=== PATIENT | male | born 1955 | race Caucasian/White ===

== ENCOUNTER 2017-08-27 08:19 | Emergency (ER) | payer SELFPAY ==
[~2017-08-27] VITALS: Ht 188 cm; Wt 85.0 kg
[2017-08-27 08:21] VITALS: BP 174/94; PULSE 104; RESP 16; TEMP 99.2; O2SAT 98
[2017-08-27] MEDS ORDERED: LAMO150 PO (08:33)
[2017-08-27] MEDS ORDERED: ADDE20 PO (08:33)
[2017-08-27] MEDS ORDERED: LAMI200T PO (08:33)
[2017-08-27] MEDS ORDERED: oxyCODONE/ACETAMINOPHEN 5 MG/325 MG TAB PO ONE (08:45)
--- NOTE | 2017-08-27 09:12 | RADRPT ---
EXAM DATE/TIME: 08/27/2017 08:46 [facility] COMPARISON: No previous studies available for comparison. INDICATIONS : Hit hand with hammer on Thursday. Pain starting at 5th digit radiating toward the middle of back of mckeon d. MEDICAL HISTORY : None. SURGICAL HISTORY : None. ENCOUNTER: Initial ACUITY: 4 - 6 days PAIN SCORE: 10/10 LOCATION: Right Hand FINDINGS: Two view examination of the right forearm demonstrates no evidence of fracture or dislocation. Bony mineralization is normal. The soft tissue structures are intact. CONCLUSION: Unremarkable examination of the right forearm. Joao Joseph MD on August 27, 2017 at 9:09 Board Certified Radiologist. This report was verified electronically.
--- NOTE | 2017-08-27 09:13 | RADRPT ---
EXAM DATE/TIME: 08/27/2017 08:46 [facility] COMPARISON: No previous studies available for comparison. INDICATIONS : Hit hand with hammer on Thursday. Pain starting at 5th digit radiating toward the middle of back of mcke[place] d. MEDICAL HISTORY : None. SURGICAL HISTORY : None. ENCOUNTER: Initial ACUITY: 4 - 6 days PAIN SCORE: 10/10 LOCATION: Right Hand FINDINGS: Three view examination of the right hand demonstrates no soft tissue swelling, dislocation, or fractu re. The carpal bones appear intact. The interphalangeal and metacarpophalangeal joints are intact. Bony mineralization is normal. CONCLUSION: Unremarkable examination of the right hand except for an incidental bone fragment along the dorsal ul bartolome base of the second distal phalange of bone likely old injury. Joao Joseph MD on August 27, 2017 at 9:10 Board Certified Radiologist. This report was verified electronically.
[2017-08-27] MEDS ORDERED: GABA100C4 PO (09:43)
[2017-08-27] MEDS ORDERED: HYDR-3516 PO (09:43)
--- NOTE | 2017-08-27 09:43 | PD ---
HPI Chief Complaint: Musculoskeletal Complaint Time Seen by Provider: 08:27 Travel History International Travel<30 days: No Contact w/Intl Traveler<30days: No Traveled to known affect area: No History of Present Illness HPI 61-year-old male complains of right hand and right wrist pain. 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 A Velcro splint has helped somewhat however swelling and pain is severe at times much worse with passive range of motion with palpation. Evidently similar injury occurred in the past when he swung a heavy hammer and missed his target. It felt as though he dislocated his hand from his wrist. Burning pain from wrist to finger tips and to proximal forearm reported. No additional injury to report. PFSH Past Medical History Bipolar Disorder: Yes Past Surgical History Other Surgery: Yes (BACK SURGERY) Social History Alcohol Use: No Tobacco Use: No Substance Use: No Allergies-Medications (Allergen,Severity, Reaction): Coded Allergies: No Known Allergies (Unverified , 08/27/17) Reported Meds & Prescriptions Reported Meds & Active Scripts Active Hydrocodone-Acetaminophen 5-325 mg Tab 1 Tab PO Q6H PRN Gabapentin 100 Mg Cap 100 Mg PO TID Reported Adderall (Amphetamine-Dextroamphetamine) 20 Mg Tab 20 Mg PO BID Avoid late evening doses. Space doses at least 4 to 6 hours if more than once/day dosing. Lamictal (Lamotrigine) 150 Mg Tab 300 Mg PO HS Lamictal (Lamotrigine) 200 Mg Tab 200 Mg PO AM Review of Systems General / Constitutional: No: Fever Physical Exam Narrative GENERAL: 61 yo M WNWD SKIN: Warm and dry. HEAD: Atraumatic. Normocephalic. EYES: Pupils equal and round. No scleral icterus. No injection or drainage. ENT: No nasal bleeding or discharge. Mucous membranes pink and moist. NECK: Trachea midline. No JVD. CARDIOVASCULAR: Regular rate and rhythm. RESPIRATORY: No accessory muscle use. Clear to auscultation. Breath sounds equal bilaterally. GASTROINTESTINAL: Abdomen soft, non-tender, nondistended. Hepatic and splenic margins not palpable. MUSCULOSKELETAL: Extremities without clubbing, cyanosis, or edema. No obvious deformities. NEUROLOGICAL: Awake and alert. No obvious cranial nerve deficits. Motor grossly within normal limits. Five out of 5 muscle strength in the arms and legs. Normal speech. PSYCHIATRIC: Appropriate mood and affect; insight and judgment normal. Data Data Last Documented VS Vital Signs Date Time Temp Pulse Resp B/P (MAP) Pulse Ox O2 Delivery O2 Flow Rate FiO2 08/27/17 10:04 08/27/17 08:21 99.2 104 16 98 Room Air Orders Orders Forearm (2vws) (08/27/17 08:32) Hand, Complete ([id number]) (08/27/17 08:32) Ice/Cold Pack (08/27/17 08:32) Splint Or Brace Apply/Monitor (08/27/17 08:32) Oxycodone-Acetamin 5-325 Mg (Percocet (08/27/17 08:45) Mandatory Outpatient Referral (08/27/17 09:46) Ed Discharge Order (08/27/17 09:47) Fiberglass Sugartong Sp Ad Arm (08/27/17 ) Sling Cradle Arm (08/27/17 ) MDM Medical Decision Making Medical Screen Exam Complete: Yes Emergency Medical Condition: Yes Medical Record Reviewed: Yes Differential Diagnosis Fracture, soft tissue/ligamentous/internal derangement, contusion, dislocation Narrative Course Last Impressions Radius/Ulna X-Ray 08/27/17831 Signed Impressions: Service Date/Time: August 08:46 - CONCLUSION: Unremarkable examination of the right forearm. Joao Joseph MD Hand X-Ray 08/27/17831 Signed Impressions: Service Date/Time: August 08:46 - CONCLUSION: Unremarkable examination of the right hand except for an incidental bone fragment along the dorsal ulnar base of the second distal phalange of bone likely old injury. MD Fallon Leo tong splint Follow up with hand surgery Mandatory outpatient referral order placed Diagnosis Primary Impression: Right wrist injury Qualified Codes: S69.91XA - Unspecified injury of right wrist, hand and finger (s), initial encounter Referrals: Matt Sheikh III, MD 2 days Med/Other Pt SpecificInfo: Prescription(s) given Scripts Hydrocodone-Acetaminophen (Hydrocodone-Acetaminophen) 5-325 mg Tab 1 TAB PO Q6H Y for PAIN SCALE 6 TO 10, #12 TAB 0 Refills Prov: Russell Dawson MD 08/27/17 Gabapentin (Gabapentin) 100 Mg Cap 100 MG PO TID, #90 CAP 0 Refills Prov: Russell Dawson MD 08/27/17 Disposition: 01 DISCHARGE HOME Condition: Stable Russell Dawson MD Aug 27, 2017 09:43
== END 2017-08-27 10:05 | disposition home or self-care (01) ==
LOC: PHED 08:19
DX: S69.91XA Unspecified injury of right wrist, hand and finger(s), initial encounter (principal); X50.3XXA Overexertion from repetitive movements, initial encounter; Y93.H3 Activity, building and construction; Y99.0 Civilian activity done for income or pay
CPT/HCPCS: 29125; 73090; 73130